=== PATIENT | female | born 1990 | race Caucasian/White ===

== ENCOUNTER 2017-01-19 20:49 | Emergency (ER) | payer SELFPAY ==
[~2017-01-19] VITALS: Ht 160 cm; Wt 55.0 kg
[~2017-01-19 20:49] MED LIST: ALBU8.5H5 INH; AZIT250T94 PO; BIRTH CONTROL; FAMO20TA18 PO; IBUP-1542 PO; ZOF8 PO
[2017-01-19 21:15] VITALS: Ht 160 cm; Wt 55.0 kg
== END 2017-01-19 22:14 | disposition left against medical advice (07) ==
LOC: FTE 20:49
DX: Z53.21 Procedure and treatment not carried out due to patient leaving prior to being seen by health care provider (principal)